=== PATIENT | female | born 1940 | race Caucasian/White ===

== ENCOUNTER 2018-01-09 15:02 | Emergency (ER) | payer OTHER ==
--- NOTE | 2018-01-09 15:48 | RADIOLOGY REPORT ---
EXAMINATION: XR WRIST, RIGHT CLINICAL INFORMATION: Fall. COMPARISON: None TECHNIQUE: 4 views. of the right wrist. FINDINGS: There is no acute abnormality. There is no fracture. There is no dislocation. There is negative ulnar variance. The ulna is shorter than the radius by about 2 mm. There are faint calcifications of the TFCC. There is joint narrowing with associated subchondral osteosclerosis of the distal pole navicular and the articular surface of the multangular bones. There is deformity of the trapezium and trapezoid due to marked degenerative joint disease of the first metacarpal carpal joint. The first metacarpal carpal joint space is narrowed with subchondral osteosclerosis and spurring of the metacarpal and the multangular bones. IMPRESSION: 1. There is no acute abnormality. There is no fracture or dislocation. 2. 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 3. Chondrocalcinosis of the TFCC without bone erosion.
--- NOTE | 2018-01-09 16:21 | CT SCAN REPORT ---
EXAMINATION: CT OF THE HEAD WITHOUT CONTRAST CT OF THE CERVICAL SPINE WITHOUT CONTRAST CLINICAL INFORMATION: Fall. Presumptive diagnosis of cervical spine fracture and intracranial hemorrhage. COMPARISON: CT scan of the head dated 01/25/2017.. TECHNIQUE: Contiguous axial imaging was performed from the skullbase to vertex without intravenous administration of contrast. Coronal reformations of the head were obtained. Contiguous axial imaging was then performed from the skull base down to the thoracic inlet. Coronal and sagittal reformations of the cervical spine were obtained. DLP: 1536.82 mGy-cm. (This dose report includes the CT scan of the maxillofacial bones.) FINDINGS: CT scan of the head: There is no evidence of acute intracranial hemorrhage or territorial infarction. No abnormal mass-effect or midline shift is seen. [place] to white matter differentiation is well preserved. No extra-axial fluid collections are identified. The ventricles are normal in size. There is mild periventricular and deep white matter low-attenuation seen, unchanged from prior exam. Atherosclerotic calcifications of the vertebral arteries and carotid siphons are seen. There is a focal curvilinear soft tissue laceration seen extending down to the left frontal bone without underlying fracture or significant hematoma formation seen. The osseous structures and soft tissues are otherwise normal. The mastoid air cells and visualized portions of the paranasal sinuses are well-aerated. CT scan of the cervical spine: Evaluation is limited due to extensive beam hardening artifact extending through the upper cervical spine, presumably related to the dental hardware. Normal alignment is seen with no evidence of acute fracture or dislocation. Craniocervical junction and atlantoaxial articulations are intact with moderate degenerative changes seen at the atlantoaxial articulation. Prevertebral soft tissues are normal in thickness. There is moderate diffuse facet arthropathy throughout the cervical spine. Moderate degenerative disc disease is seen at C5-6 with disc space narrowing and vertebral endplate sclerosis, cystic changes and spurring seen, including a small posterior disc osteophyte complex, which indents the thecal sac without causing significant spinal stenosis. There is grade 1 anterolistheses of C4 on C5 and C5 on C6 with minimal disc space narrowing and some spurring noted. Remainder of disc space height relatively well-maintained at all levels. There may be subtle small low-attenuation 0.5 cm nodules in the right and left lobes of the thyroid gland versus more likely volume averaging with adjacent soft tissues (series 9, images 213 and 224). The included soft tissues of the neck are otherwise unremarkable. Biapical pleural-based reticular nodular opacities are seen, consistent with scarring. IMPRESSION: CT scan of the head: Focal soft tissue laceration seen along the left frontal scalp, extending down to the frontal bone without significant hematoma formation or underlying fracture seen. No acute intracranial pathology. Mild ischemic small vessel disease. CT scan of the cervical spine: No evidence of cervical spine fracture or malalignment. Diffuse facet arthropathy throughout the cervical spine and moderate degenerative disc disease at C5-6. Mild spondylolisthesis at C4-5 and C5-6, likely on a degenerative basis. Close clinical correlation requested.
--- NOTE | 2018-01-09 16:39 | CT SCAN REPORT ---
EXAMINATION: CT FACE/SINUSES CLINICAL INFORMATION: Fall, assess for fracture. COMPARISON: Concurrent CT scan of the head and cervical spine 01/09/2018. CT scan of the head 01/25/2017. TECHNIQUE:? Noncontrast axial CT of the maxillofacial region with sagittal and coronal reformatted images.? DLP: 1536.82 mGy-cm. (This includes the dose from the CT head and cervical spine). FINDINGS: There is no acute maxillofacial fracture. The mandible and mandibular condyles are intact. The pterygoid plates, zygomatic arches and lamina papyracea are intact. The bony orbital rims are intact. The nasal bones are intact. The paranasal sinuses are well-aerated. No air-fluid levels are seen. There is rightward deviation of the nasal septum, with a small bony spur. The ostiomeatal complexes are clear. The ethmoid roofs are symmetric. The carotid canals are normally covered by bone. No periapical disease is seen. There is fluid in the left mastoid. The middle ear cavities are well-aerated. There have been bilateral lens extractions The TMJs are unremarkable. The visualized calvarium is intact; the laceration of the left frontal scalp is not included on the [id number] there are atheromatous calcifications of the bilateral cavernous internal carotid arteries and vertebral arteries. The imaged portions of the brain demonstrate no acute abnormality. IMPRESSION: 1. There are no acute fractures. There are acute no soft tissue abnormalities. 2. There is fluid at the left mastoid tip.
[2018-01-09 17:35] VITALS: BP 156/70
--- NOTE | 2018-01-09 17:36 | ED GENERAL ADULT ---
History of Present Illness General Chief Complaint: Fall Stated Complaint: PT FELL AND CUT HER HEAD AND LIP Source: patient Exam Limitations: no limitations Vital Signs & Intake/Output Vital Signs & Intake/Output ED Intake and Output 01/10 0000 01/09 1200 Intake Total 0 Output Total Balance 0 Intake, Oral 0 Allergies Coded Allergies: Penicillins (Intermediate, HIVES 01/09/18) Triage Note: PT TO ED S/P MECHANICAL TRIP AND FALL INTO PROPANE TANK AT HOME. SUSTAINED APPROX 2.5 CM LAC TO LEFT SIDE OF FOREHEAD AND SMALL LAC TO LIP. BLEEDING CONTROLLED. DENIES LOC. DENIES BLOOD THINNERS. ALSO HAS ABRASION AND PAIN TO RIGHT WRIST. Triage Nurses Notes Reviewed? yes Onset: Abrupt Duration: minute(s): Timing: single episode today HPI: 77-year-old female with no known past medical history presenting with forehead laceration, lip laceration, nose abrasion, right wrist abrasion/pain status post mechanical fall just prior to arrival. She was outside working in the yard when she had a mechanical trip and fall. She fell and struck her head/face on a propane tank. There was no loss of consciousness. Not on any anticoagulation. Denies headache, visual changes, nausea, vomiting since the fall. Denies any preceding symptoms such as lightheadedness, dizziness, chest pain, shortness of breath. (Elysia Veliz) Past History Travel History Traveled to [place] past 21 day No Medical History Any Pertinent Medical History? none Tetanus Vaccine: 01/09/18 Surgical History Surgical History: non-contributory Psychosocial History What is your primary language Latvian Tobacco Use: Never used Family History Hx Contributory? No (Elysia Veliz) Review of Systems Review of Systems Constitutional: Reports: no symptoms. EENTM: Reports: no symptoms. Respiratory: Reports: no symptoms. Cardiovascular: Reports: no symptoms. GI: Reports: no symptoms. Genitourinary: Reports: no symptoms. Musculoskeletal: Reports: see HPI. Skin: Reports: see HPI. Neurological/Psychological: Reports: no symptoms. Hematologic/Endocrine: Reports: no symptoms. Immunologic/Allergic: Reports: no symptoms. All Other Systems: Reviewed and Negative (Elysia Veliz) Physical Exam Physical Exam General Appearance: well developed/nourished, no apparent distress, alert, awake Comments: Primary Survey: Airway: intact Breathing: breath sounds equal bilaterally Circulation: 2+ distal pulses Disability: a&ox3, pupils equally round and reactive Secondary Survey: Head: Normocephalic, atraumatic, nontender, no skull depressions/deformities Ears: No hemotympanum Nose: No epistaxis or septal hematomas Throat/mouth : No oral lacerations, no missing teeth Face: No abrasions/lacerations, no crepitus or deformities Neck: No midline TTP, unrestricted c-spine ROM Heart: Regular rate and rhythm Lungs: Clear to auscultation bilaterally with normal air entry Chest: Nontender, no flail segments Abdomen: Soft, nontender, nondistended, normal bowel sounds Pelvis: Non-tender and stable to AP and lateral compression Extremities: Normal range of motion of all joints, notably there is unrestricted range of motion of the right wrist joint and the right upper extremity is neurovascularly intact with 2+ radial pulse Neurologic: Cranial nerves grossly intact, no motor/sensory deficitis, cerebellalr function intact Skin: warm and dry, approximately 2 inch linear laceration to the left forehead and subcentimeter right upper lip laceration that does not cross the vermilion border, also noted to have abrasion to the bridge of the nose and right wrist Back: No midline TTP of T-spine or L-spine Rectal exam: deferred Core Measures ACS in differential dx? No CVA/TIA Diagnosis: No Sepsis Present: No Sepsis Focused Exam Completed? No (Elysia Veliz) Progress Differential Diagnoses I considered the following diagnoses in my evaluation of the patient: [ Lacerations versus abrasions versus facial fracture versus cranial fracture versus ICH versus vertebral fracture versus wrist fracture] Plan of Care: CT scan IMPRESSION: CT scan of the head: Focal soft tissue laceration seen along the left frontal scalp, extending down to the frontal bone without significant hematoma formation or underlying fracture seen. No acute intracranial pathology. Mild ischemic small vessel disease. CT scan of the cervical spine: No evidence of cervical spine fracture or malalignment. Diffuse facet arthropathy throughout the cervical spine and moderate degenerative disc disease at C5-6. Mild spondylolisthesis at C4-5 and C5-6, likely on a degenerative basis. Close clinical correlation requested. Wrist x-ray 1. There is no acute abnormality. There is no fracture or dislocation. 2. 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 3. Chondrocalcinosis of the TFCC without bone erosion. Tetanus updated. Wound repaired according to procedure note. Counseled on wound care and will return in 7 days for suture removal. Given strict return precautions. Initial ED EKG: none (Elysia Veliz) Departure Departure Disposition: HOME OR SELF CARE Condition: Stable Clinical Impression Primary Impression: Facial laceration Secondary Impressions: Abrasion, Closed head injury, Fall, Lip laceration Referrals: Tami Tinoco MD (PCP/Family) Additional Instructions: Keep the wounds clean and dry. Use Motrin as needed for pain. Follow-up in 7 days for suture removal. Return to the emergency department sooner for any new or worsening symptoms. Departure Forms: Customer Survey General Discharge Information (Elysia Veliz) PA/REAL ESTATE CLOSING COORDINATOR Co-Sign Statement Statement: ED Attending supervision documentation- [] I saw and evaluated the patient. I have also reviewed all the pertinent lab results and diagnostic results. I agree with the findings and the plan of care as documented in the PA's/REAL ESTATE CLOSING COORDINATOR's documentation. [X] I have reviewed the ED Record and agree with the PA's/REAL ESTATE CLOSING COORDINATOR's documentation. I attempted to evaluate this patient personally based on her age but unfortunately she left the emergency department prior. [] Additions or exceptions (if any) to the PAs/REAL ESTATE CLOSING COORDINATOR's note and plan are summarized below: [] (Mari AREVALO,Venkata Stone) Procedures Laceration/Wound Repair Laceration/Wound Repair: Wound Location: face Wound's Depth, Shape: linear Wound Explored: clean, no foreign body removed Irrigated w/ Saline (ccs): 180 Betadine Prep? Yes Anesthesia: 1% lidocaine Suture Size/Type: 6:0, nylon, absorable, 4 nylon simple interupteds to forehead lac 2 absorable simple interupteds to lip lac Number of Sutures: 6 Date of Last Tetanus: 01/09/18 (Elysia Veliz) Critical Care Note Critical Care Note Critical Care Time: non-applicable (Elysia Veliz)
== END 2018-01-09 17:38 ==
LOC: ERH 15:02
DX: S01.511A Laceration without foreign body of lip, initial encounter (principal); S01.81XA Laceration without foreign body of other part of head, initial encounter; S09.90XA Unspecified injury of head, initial encounter; S00.31XA Abrasion of nose, initial encounter; S60.811A Abrasion of right wrist, initial encounter; W01.0XXA Fall on same level from slipping, tripping and stumbling without subsequent striking against object, initial encounter; Y93.H9 Activity, other involving exterior property and land maintenance, building and construction
CPT/HCPCS: 73110-RT; 90471; 90714